=== PATIENT | female | born 1980 | race Caucasian/White ===

== ENCOUNTER 2016-05-14 19:49 | Emergency (ER) | payer BC, OTHER ==
[2016-05-14] MEDS ORDERED: PREDNISONE 20 MG TABLET PO ONE (21:01)
[2016-05-14] MEDS ORDERED: IPRATROPIUM/ALBUTEROL 0.5-2.5 MG/3 ML AMPUL NEB ONE (21:01)
--- NOTE | 2016-05-14 21:02 | ER Document Report ---
ED Medical Screen (RME) - General Stated Complaint: FEVER,CONGESTION Mode of Arrival: Ambulatory Information source: Patient Notes: Patient complains of fever and body aches. She complains of lung pain when taking a deep breath. Patient reports nonproductive cough. Fever has been 102- 103 at home. Patient reports cough symptoms for the past 8 days. Fever just started today. hx: Thyroid cancer I have greeted and performed a rapid initial assessment of this patient. A comprehensive ED assessment and evaluation of the patient, analysis of test results and completion of the medical decision making process will be conducted by additional ED providers. TRAVEL OUTSIDE OF THE [place] IN LAST 30 DAYS: No - Related Data Allergies/Adverse Reactions: erythromycin base [Erythromycin Base] Allergy (Severe, Verified 05/14/16 20:59) Anaphylaxis morphine [Morphine] Allergy (Unknown, Verified 05/14/16 20:59) Silk tape Allergy (Intermediate, Uncoded 01/17/11 12:01) Tears skin, rash Past Medical History - Past Medical History Cardiac Medical History: Reports: Hx Hypercholesterolemia Denies: Hx Coronary Artery Disease, Hx Heart Attack, Hx Hypertension Pulmonary Medical History: Denies: Hx Asthma, Hx Bronchitis, Hx COPD, Hx Pneumonia Neurological Medical History: Reports: Hx Migraine. Denies: Hx Cerebrovascular Accident, Hx Seizures Musculoskeltal Medical History: Denies Hx Arthritis Past Surgical History: Reports: Hx Hysterectomy - Immunizations Hx Diphtheria, Pertussis, Tetanus Vaccination: No Physical Exam - Vital signs Vitals: Temp Pulse BP Pulse Ox 98.2 F 79 120/76 95 05/14/16 20:38 05/14/16 20:38 05/14/16 20:38 05/14/16 20:38 - Respiratory Respiratory status: Depressed respirations Chest status: Pain with cough, Pain with deep breathing Breath sounds: Nonproductive cough, Wheezing Course - Vital Signs Vital signs: Temp Pulse Resp BP Pulse Ox 98.2 F 79 120/76 95 05/14/16 20:38 05/14/16 20:38 05/14/16 20:38 05/14/16 20:38
[2016-05-15] MEDS ORDERED: ALBUTEROL SULFATE HFA (90 MCG/PUFF) 8 GM MDI (1 MDI/ER DISP) IH PRN (01:59)
[2016-05-15] MEDS ORDERED: BENZONATATE 100 MG CAPSULE PO ONE (01:59)
--- NOTE | 2016-05-15 02:02 | ER Document Report ---
ED General - General Chief Complaint: Flu Symptoms Stated Complaint: FEVER,CONGESTION Mode of Arrival: Ambulatory Notes: Patient is a 35-year-old female with past medical history of thyroid cancer in no longer on any active chemotherapy or radiation who presents with 8 days of cough. Patient states that she has also had a fever several times the last 2 days as high as 102F. Symptoms have been unchanged since onset. States she's been trying [id number] medications without any improvement of her symptoms. Nothing worsens her symptoms. States she's had similar symptoms in the past and she's had bronchitis. She does not have a history of asthma and does not use tobacco. She is not seen her primary care physician regarding today's concerns. Denies any associated vomiting, diarrhea, weakness or numbness. No headache or neck pain. Denies any shortness of breath. No history of DVT or pulmonary embolus. She does not use any form of estrogen. TRAVEL OUTSIDE OF THE [place] IN LAST 30 DAYS: No - Related Data Allergies/Adverse Reactions: erythromycin base [Erythromycin Base] Allergy (Severe, Verified 05/14/16 20:59) Anaphylaxis morphine [Morphine] Allergy (Unknown, Verified 05/14/16 20:59) Silk tape Allergy (Intermediate, Uncoded 01/17/11 12:01) Tears skin, rash Past Medical History - General Information source: Patient - Social History Smoking Status: Never Smoker Chew tobacco use (# tins/day): No Frequency of alcohol use: None Drug Abuse: None Lives with: Spouse/Significant other Family History: Reviewed & Not Pertinent - Past Medical History Cardiac Medical History: Reports: Hx Hypercholesterolemia Denies: Hx Coronary Artery Disease, Hx Heart Attack, Hx Hypertension Pulmonary Medical History: Denies: Hx Asthma, Hx Bronchitis, Hx COPD, Hx Pneumonia Neurological Medical History: Reports: Hx Migraine. Denies: Hx Cerebrovascular Accident, Hx Seizures Renal/ Medical History: Denies: Hx Peritoneal Dialysis Musculoskeltal Medical History: Denies Hx Arthritis Past Surgical History: Reports: Hx Hysterectomy - Immunizations Hx Diphtheria, Pertussis, Tetanus Vaccination: No Review of Systems - Review of Systems Notes: Constitutional: Positive for fever. HENT: Negative for sore throat. Eyes: Negative for visual changes. Cardiovascular: Negative for chest pain. Respiratory: Negative for shortness of breath. Positive for cough Gastrointestinal: Negative for abdominal pain, vomiting or diarrhea. Genitourinary: Negative for dysuria. Musculoskeletal: Negative for back pain. Skin: Negative for rash. Neurological: Negative for headaches, weakness or numbness. 10 point ROS negative except as marked above and in HPI. Physical Exam - Vital signs Vitals: Temp Pulse BP Pulse Ox 98.2 F 79 120/76 95 05/14/16 20:38 05/14/16 20:38 05/14/16 20:38 05/14/16 20:38 Interpretation: Normal Notes: PHYSICAL EXAMINATION: GENERAL: Well-appearing, well-nourished and in no acute distress. HEAD: Atraumatic, normocephalic. EYES: Pupils equal round and reactive to light, extraocular movements intact, sclera anicteric, conjunctiva are normal. ENT: nares patent, oropharynx clear without exudates. Moist mucous membranes. NECK: Normal range of motion, supple without lymphadenopathy LUNGS: Breath sounds clear to auscultation bilaterally and equal. No wheezes rales or rhonchi. HEART: Regular rate and rhythm without murmurs ABDOMEN: Soft, nontender, normoactive bowel sounds. No guarding, no rebound. No masses appreciated. EXTREMITIES: Normal range of motion, no pitting or edema. No cyanosis. NEUROLOGICAL: No focal neurological deficits. Moves all extremities spontaneously and on command. PSYCH: Normal mood, normal affect. SKIN: Warm, Dry, normal turgor, no rashes or lesions noted. Course - Re-evaluation Re-evalutation: 05/15/16 01:59 Presentation is most consistent with a viral upper respiratory infection. Patient is overall well appearance, vitals within normal limits, well-hydrated. Patient denies any headache, neck pain, and has no evidence of meningismus on examination. Lungs are clear bilaterally. No evidence of respiratory distress. Based on clinical exam and history, I do not suspect an acute pneumonia, meningitis, strep pharyngitis, or an acute encephalitis. Chest x- ray without evidence of an acute pneumonia. I do not believe laboratories are indicated at this time. At this time will discharge with return precautions and follow-up recommendations. Verbal discharge instructions given a the bedside and opportunity for questions given. Medication warnings reviewed. Patient is in agreement with this plan and has verbalized understanding of return precautions and the need for primary care follow-up in the next 24-72 hours. - Vital Signs Vital signs: Temp Pulse Resp BP Pulse Ox 98 F 74 16 120/82 98 05/15/16 02:15 05/15/16 02:15 05/15/16 02:15 05/15/16 02:15 05/15/16 02:15 - Diagnostic Test Radiology reviewed: Image reviewed, Reports reviewed Radiology results interpreted by me: 05/15/16 02:00 Chest x-ray: No acute infiltrate Discharge - Discharge Clinical Impression: Bronchitis Condition: Good Disposition: HOME, SELF-CARE Additional Instructions: You were seen for symptoms most consistent with bronchitis. This can take up to 12 weeks to fully resolve. This is generally due to a viral infection. Please follow-up with your primary doctor in the next 2-3 days. Return if you develop worsening cough, vomiting, fever >100.4, pass out, begin coughing blood, or have any other symptoms that are concerning to you. Please use the medications prescribed today as directed. Prescriptions: Benzonatate [Tessalon Perle 100 mg Capsule] 100 mg PO Q8HP PRN #40 cap PRN Reason: Forms: Return to Work
[2016-05-15 02:26] VITALS: BP 120/82
== END 2016-05-15 02:26 | disposition home or self-care (01) ==
LOC: ER 19:49
DX: J40 Bronchitis, not specified as acute or chronic (principal); R50.9 Fever, unspecified; R05 Cough; Z85.850 Personal history of malignant neoplasm of thyroid; Z88.1 Allergy status to other antibiotic agents; Z88.5 Allergy status to narcotic agent
CPT/HCPCS: 94640; 99283; 71020; J7512; J3490; J7620

== ENCOUNTER 2018-07-15 07:54 | Day surgery (SDC) | payer BC ==
[~2018-07-15 07:54] MED LIST: PROPOFOL INJ 200 MG/20 ML VIAL IV ONE
[2018-07-15 09:15] VITALS: BP 113/72
--- NOTE | 2018-07-15 13:18 | Operative Report ---
Operative Report DATE OF SURGERY: 07/15/18 Operative Report: The risks, benefits and alternatives of the procedure including the risk of bleeding, perforation requiring surgery have been explained to the patient in detail and informed consent has been obtained. Patient is placed in the left, lateral decubital position. Timeout was called. Propofol medication is administered. Rectal examination is done which did not reveal any masses, tears or fissures. An Olympus videoscope was introduced into the patient's rectum. The scope was then carefully advanced all the way to the cecum. The cecum was identified by the usual anatomical landmarks including the ileocecal valve as well as the appendiceal office. Photodocumentation is obtained. Scope was then sequentially pulled back via the various segments of the colon including the ascending colon, hepatic flexure, transverse colon, splenic flexure, descending colon and finally into the rectosigmoid portions of the colon. Retroflexion maneuver was performed. PREOPERATIVE DIAGNOSIS: Personal history of polyp POSTOPERATIVE DIAGNOSIS: Diverticulosis without any evidence of diverticulitis. Right-sided colon inflammation status post biopsy. Internal hemorrhoids OPERATION: Colonoscopy with biopsy SURGEON: MYRIAM VOGT ANESTHESIA: LMAC TISSUE REMOVED OR ALTERED: As noted above. COMPLICATIONS: None. ESTIMATED BLOOD LOSS: None. INTRAOPERATIVE FINDINGS: As noted above. PROCEDURE: Patient tolerated the procedure well. No immediate postprocedure complications are noted. Patient discharged in good condition. Discharge date 07/15/2018. Discharge diet: Regular. Discharge activity: Regular. 2-3-week follow-up to discuss findings. Patient is instructed to call the office or proceed to the emergency room should there be any further problems or questions. Wait on the pathology. 5-year surveillance colonoscopy.
== END 2018-07-15 09:08 | disposition home or self-care (01) ==
LOC: END 07:54
PROVIDERS: ATTEND Internal Medicine Gastroenterology
PROC: 0DBF8ZX Excision of Right Large Intestine, Via Natural or Artificial Opening Endoscopic, Diagnostic (ICD-10-PCS; principal; 2018-07-15 08:30)
DX: Z12.11 Encounter for screening for malignant neoplasm of colon (principal); K57.32 Diverticulitis of large intestine without perforation or abscess without bleeding; K57.90 Diverticulosis of intestine, part unspecified, without perforation or abscess without bleeding; K64.8 Other hemorrhoids; Z86.010 Personal history of colon polyps; Z85.850 Personal history of malignant neoplasm of thyroid; Z90.710 Acquired absence of both cervix and uterus; Z79.899 Other long term (current) drug therapy; Z88.1 Allergy status to other antibiotic agents; Z88.8 Allergy status to other drugs, medicaments and biological substances
CPT/HCPCS: 45380; 811; 88305; J2704

== ENCOUNTER 2018-08-10 22:55 | Emergency (ER) | payer BC ==
--- NOTE | 2018-08-11 01:04 | ER Document Report ---
ED General - General TRAVEL OUTSIDE OF THE [place] IN LAST 30 DAYS: No - General Chief Complaint: Leg Pain Stated Complaint: LEG SWELLING Time Seen by Provider: 08/11/18 00:47 Notes: Patient is a 37-year-old female presents with complaint of left leg pain. She has pain into her left thigh. She says she has any varicose veins pop up on lateral aspect of thigh and she felt a little not painful area there. She also has been having a dull pain over the posterior aspect of her left thigh. She travels for work and is constantly on the plane and traveling long distances. No history of DVT. No edema. No fevers. No chest pain or shortness of breath. No other complaints at this time. (CALI PÉREZ) - Related Data Allergies/Adverse Reactions: erythromycin base [Erythromycin Base] Allergy (Severe, Verified 07/15/18 07:48) Anaphylaxis morphine [Morphine] Allergy (Severe, Verified 07/15/18 07:48) PONV Silk tape Allergy (Intermediate, Uncoded 07/15/18 07:48) Tears skin, rash Past Medical History - Social History Smoking Status: Never Smoker Frequency of alcohol use: None Drug Abuse: None Family History: Reviewed & Not Pertinent - Past Medical History Cardiac Medical History: Reports: Hx Hypercholesterolemia Denies: Hx Coronary Artery Disease, Hx Heart Attack, Hx Hypertension Pulmonary Medical History: Denies: Hx Asthma, Hx Bronchitis, Hx COPD, Hx Pneumonia Neurological Medical History: Reports: Hx Migraine. Denies: Hx Cerebrovascular Accident, Hx Seizures Renal/ Medical History: Denies: Hx Peritoneal Dialysis Musculoskeletal Medical History: Denies Hx Arthritis Past Surgical History: Reports: Hx Hysterectomy - Immunizations Hx Diphtheria, Pertussis, Tetanus Vaccination: No Review of Systems - Review of Systems Notes: My Normal Review Basic REVIEW OF SYSTEMS: CONSTITUTIONAL : Denies fever, chills, or sweats. Denies recent illness. CARDIOVASCULAR: Denies chest pain. RESPIRATORY: Denies cough, cold, or chest congestion. Denies shortness of breath, difficulty breathing, or wheezing. MUSCULOSKELETAL: Denies neck or back pain or joint pain or swelling. SKIN: Denies rash or skin lesions. HEMATOLOGIC : Denies easy bruising or bleeding. NEUROLOGICAL: Denies sensory or motor loss. ALL OTHER SYSTEMS REVIEWED AND NEGATIVE. (CALI PÉREZ) Physical Exam - Vital signs Vitals: Temp Pulse Resp BP Pulse Ox 98.4 F 84 15 134/86 H 97 08/10/18 23:15 08/10/18 23:15 08/10/18 23:15 08/10/18 23:15 08/10/18 23:15 - Notes Notes: General Appearance: Well nourished, alert, cooperative, no acute distress, no obvious discomfort. Vitals: reviewed, See vital signs table. Eyes: PERRL, EOMI, Conjuctiva clear Extremities: Patient does have multiple small superficial varicose veins. I do not feel any abnormal form of not. Patient does have a dull pain over the posterior aspect of her thigh to palpation. Distal pulses intact. No redness or abnormal swelling to the leg. Skin: warm, dry, appropriate color, no rash Neuro: speech clear, oriented x 3, normal affect, responds appropriately to questions. (CALI PÉREZ) Course - Re-evaluation Re-evalutation: 08/11/18 02:53 Patient will be awaiting ultrasound in the morning to rule out DVT. If DVT ultrasound is negative patient will be discharged home encouraged to return to ER if she has swelling, redness or abnormal warmth to the leg, or any signs of infection. Currently patient has no signs of infection or cellulitis. I suspect that she may have a strain in her hamstring due to the dull pain over the back of the leg. Ultrasound results will be reviewed by morning ED physician and patient will be just about based off of the results. 08/11/18 02:54 (CALI PÉREZ) - Vital Signs Vital signs: Temp Pulse Resp BP Pulse Ox 98.0 F 72 16 126/81 H 99 08/11/18 10:11 08/11/18 10:11 08/11/18 10:11 08/11/18 10:11 08/11/18 10:11 Discharge - Discharge Clinical Impression: Leg pain Qualifiers: Laterality: left Qualified Code(s): M79.605 - Pain in left leg Condition: Good Disposition: HOME, SELF-CARE Additional Instructions: Please do not do anything exertional for one week. Please do stretches that gradually stretch your hamstring. Please return to the ER if you have redness, abnormal warmth to the leg, increasing swelling, chest pain, shortness of breath, fevers, or if you feel like your symptoms are worsening in any way.
[2018-08-11 10:18] VITALS: BP 126/81
--- NOTE | 2018-08-11 10:20 | RADIOLOGY REPORT (SQ) ---
EXAM DESCRIPTION: VENOUS UNILATERAL LOWER COMPLETED DATE/TIME: 08/11/2018 10:11 am REASON FOR STUDY: left leg COMPARISON: None. TECHNIQUE: Dynamic and static harrington scale and color images acquired of the left leg venous system. Se lected spectral images acquired with additional compression and augmentation maneuvers. The contralat eral common femoral vein and saphenofemoral junction were also imaged. Images stored on PACS. LIMITATIONS: None. FINDINGS: COMMON FEMORAL: Normal phasicity, compression and augmentation. No visualized echogenic ma terial on harrington scale. No defects on color images. FEMORAL: Normal compression and augmentation. No visualized echogenic material on harrington scale. No defe cts on color images. POPLITEAL: Normal compression, augmentation. No visualized echogenic material on harrington scale. No defec ts on color images. CALF VESSELS: Normal compression, augmentation. No visualized echogenic material on harrington scale. No de fects on color images. GSV and SSV: Normal compression, augmentation. No visualized echogenic material on harrington scale. No def ects on color images. ANY DEEP VENOUS INSUFFICIENCY: No. ANY EVIDENCE OF POPLITEAL CYST: No. OTHER: No other significant finding. CONTRALATERAL COMMON FEMORAL VEIN AND SAPHENOFEMORAL JUNCTION: Normal phasicity, compression and augmentation. No visualized echogenic material on harrington scale. No de fects on color images. IMPRESSION: NO EVIDENCE DVT OR SVT IN THE LEFT LEG. TECHNICAL DOCUMENTATION: JOB ID: [id number] [employer]- All Rights Reserved Reading location - IP/workstation name: [email or web address]
== END 2018-08-11 10:11 | disposition home or self-care (01) ==
LOC: ER 22:55
DX: M79.652 Pain in left thigh (principal); I83.90 Asymptomatic varicose veins of unspecified lower extremity; Z87.892 Personal history of anaphylaxis; Z88.1 Allergy status to other antibiotic agents; Z88.5 Allergy status to narcotic agent; Z91.048 Other nonmedicinal substance allergy status
CPT/HCPCS: 93971; 99283

== ENCOUNTER 2018-09-04 21:21 | Emergency (ER) | payer BC ==
--- NOTE | 2018-09-04 22:53 | ER Document Report ---
ED Medical Screen (RME) - General Chief Complaint: Groin Pain Stated Complaint: ABDOMINAL PAIN Time Seen by Provider: 09/04/18 22:43 Notes: Patient is a 37-year-old female who presents to the emergency department with a chief complaint of left lower quadrant abdominal pain. She states that she also has groin pain on the left side. She was diagnosed with shingles on her left flank area a few days ago. She states that her lower abdominal pain started last night. She thought it would go away, but she states that it has not. She also notes that she does have an inflamed lymph node in her left groin. She has a past surgical history of a partial hysterectomy, she still has her ovaries. She also has a past medical history of PCOS. Last problem was this morning and was normal. Exam: Tender left lower abdominal. Enlarged lymph node left groin. I have greeted and performed a rapid initial assessment of this patient. A comprehensive ED assessment and evaluation of the patient, analysis of test results and completion of medical decision making process will be conducted by an additional ED providers. TRAVEL OUTSIDE OF THE [place] IN LAST 30 DAYS: No - Related Data Allergies/Adverse Reactions: erythromycin base [Erythromycin Base] Allergy (Severe, Verified 07/15/18 07:48) Anaphylaxis morphine [Morphine] Allergy (Severe, Verified 07/15/18 07:48) PONV Silk tape Allergy (Intermediate, Uncoded 07/15/18 07:48) Tears skin, rash Past Medical History - Past Medical History Cardiac Medical History: Reports: Hx Hypercholesterolemia Denies: Hx Coronary Artery Disease, Hx Heart Attack, Hx Hypertension Pulmonary Medical History: Denies: Hx Asthma, Hx Bronchitis, Hx COPD, Hx Pneumonia Neurological Medical History: Reports: Hx Migraine. Denies: Hx Cerebrovascular Accident, Hx Seizures Renal/ Medical History: Denies: Hx Peritoneal Dialysis Musculoskeltal Medical History: Denies Hx Arthritis Past Surgical History: Reports: Hx Hysterectomy - Immunizations Hx Diphtheria, Pertussis, Tetanus Vaccination: No Physical Exam - Vital signs Vitals: Temp Pulse Resp BP Pulse Ox 100.0 F 81 16 137/91 H 94 09/04/18 21:33 09/04/18 21:33 09/04/18 21:33 09/04/18 21:33 09/04/18 21:33 Course - Vital Signs Vital signs: Temp Pulse Resp BP Pulse Ox 100.0 F 81 16 137/91 H 94 09/04/18 21:33 09/04/18 21:33 09/04/18 21:33 09/04/18 21:33 09/04/18 21:33
--- NOTE | 2018-09-05 00:18 | RADIOLOGY REPORT (SQ) ---
EXAM DESCRIPTION: US PELVIS TRANSVAGINAL COMPLETED DATE/TME: 09/04/2018 22:48 CLINICAL HISTORY: 37 years, Female, RLQ abd pain; hx of partial hysterectomy COMPARISON: None. TECHNIQUE: Transverse and longitudinal transvaginal sonographic images of the pelvis LIMITATIONS: None. FINDINGS: Status post hysterectomy. The right ovary measures 3.5 x 2.3 x 1.9 cm. Left ovary measures 2.5 x 1.7 x 2.0 cm. Arterial and venous flow to both ovaries. Subcentimeter cystic foci associated with each ovary likely reflect residual/postmenopausal cyst. These have a simple appearance. Recommend follow-up as for below. No solid adnexal mass. No free fluid IMPRESSION: Status post hysterectomy with simple appearing subcentimeter ovarian cysts, likely reflecting residual/postmenopausal cyst. Recommendations for f/u of ovarian anechoic simple cyst, simple cyst with single thin <3 mm septation, or focal calcification in wall of cyst (1): Pre-menopause: <= 5 cm No follow-up imaging recommended >5 cm - <=7 cm US f/u annually >7 cm Consider MR w/IVC or surgical evaluation Post-menopause (>=1 year from last menstrual period): <=3 cm No follow-up imaging recommended >3 cm - <=7 cm US f/u annually >7 cm Consider MR w/IVC or surgical evaluation (1) Recommendations based on 2010 SRU Consensus Conference Statement on the Management of Asymptomatic Ovarian and Other Adnexal Cysts Imaged at US: Radiology. 2009;256(3):899-40 copyright 2010 [employer]- All Rights Reserved
[2018-09-05] MEDS ORDERED: ONDANSETRON HCL INJ/PF 4 MG/2 ML SDV IV ONE (00:57)
[2018-09-05] MEDS ORDERED: KETOROLAC TROMETHAMINE INJ/PF 30 MG/1 ML SDV IV ONE (00:57)
[2018-09-05] MEDS: KETOROLAC TROMETHAMINE INJ/PF 30 MG/1 ML SDV IV ONE ×2 (01:01→01:04)
[2018-09-05] MEDS: ONDANSETRON HCL INJ/PF 4 MG/2 ML SDV IV ONE ×2 (01:02→01:04)
[2018-09-05 01:17] LABS: ABSOLUTE EOSINOPHILS # (AUTO) 0.1 10^3/uL (0.0-0.6); ABSOLUTE LYMPHOCYTES (AUTO) 1.8 10^3/uL (0.5-4.7); ABSOLUTE MONOCYTES (AUTO) 0.8 10^3/uL (0.1-1.4); ABSOLUTE NEUT (AUTO) 4.9 10^3/uL (1.7-8.2); BASOPHILS % (AUTO) 0.4 % (0-2); EOSINOPHILS % (AUTO) 1.9 % (0-6); HEMATOCRIT 43.4 % (36.0-47.0); HEMOGLOBIN 14.6 g/dL (12.0-15.5); LYMPHOCYTES % (AUTO) 23.5 % (13-45); MEAN CORPUSCULAR HEMOGLOBIN 30.3 pg (27.0-33.4); MEAN CORPUSCULAR HGB CONC 33.5 g/dL (32.0-36.0); MEAN CORPUSCULAR VOLUME 90 fl (80-97); MONOCYTES % (AUTO) 10.3 % (3-13); PLATELET COUNT 213 10^3/uL (150-450); RED BLOOD COUNT 4.81 10^6/uL (3.72-5.28); RED CELL DISTRIBUTION WIDTH 13.1 % (11.5-14.0); SEGMENTED NEUTROPHILS % (AUTO) 63.9 % (42-78); TOTAL CELLS COUNTED % (AUTO) 100 %; WHITE BLOOD COUNT 7.6 10^3/uL (4.0-10.5)
[2018-09-05 01:43] LABS: ALANINE AMINOTRANSFERASE 42 U/L (9-52); ALBUMIN 4.3 g/dL (3.5-5.0); ALKALINE PHOSPHATASE 54 U/L (38-126); ANION GAP 7 (5-19); ASPARTATE AMINO TRANSFERASE 31 U/L (14-36); BILIRUBIN,DIRECT 0.2 mg/dL (0.0-0.4); BILIRUBIN,TOTAL 0.3 mg/dL (0.2-1.3); BLOOD UREA NITROGEN 10 mg/dL (7-20); CALCIUM 9.6 mg/dL (8.4-10.2); CARBON DIOXIDE 29 mmol/L (22-30); CHLORIDE 101 mmol/L (98-107); GLUCOSE 116 mg/dL (75-110); POTASSIUM 4.1 mmol/L (3.6-5.0); SODIUM 137.2 mmol/L (137-145); TOTAL PROTEIN 7.7 g/dL (6.3-8.2)
[2018-09-05] MEDS ORDERED: HYDROCODONE/ACETAMINOPHEN 5-325 MG TABLET PO ONE (03:10)
[2018-09-05 03:11] LABS: APPEARANCE,URINE CLEAR; BILIRUBIN,URINE NEGATIVE (NEGATIVE); COLOR,URINE YELLOW; GLUCOSE, URINE NEGATIVE (NEGATIVE); KETONES,URINE NEGATIVE (NEGATIVE); LEUKOCYTE ESTERASE,URINE NEGATIVE (NEGATIVE); NITRITE,URINE NEGATIVE (NEGATIVE); PROTEIN,URINE NEGATIVE (NEGATIVE); URINE SPECIFIC GRAVITY 1.015; UROBILINOGEN,URINE NEGATIVE mg/dL (<2.0)
--- NOTE | 2018-09-05 04:13 | RADIOLOGY REPORT (SQ) ---
EXAM DESCRIPTION: US RETROPERITONEUM COMPLETED DATE/TME: 09/05/2018 03:29 CLINICAL HISTORY:37 years Female, left flank pain Comparison: None Grayscale and Doppler sonogram of the retroperitoneum. FINDINGS: IVC: Normal Aorta: Normal Right kidney: 10.3 cm. No hydronephrosis. No nephrolithiasis. Left kidney: 12.5 cm. No hydronephrosis. No nephrolithiasis. Urinary bladder: Normal. Bilateral ureteral jets visualized. IMPRESSION: No hydronephrosis or nephrolithiasis within either kidney.
[2018-09-05] MEDS ORDERED: PREGABALIN 75 MG CAPSULE PO ONE (04:30)
--- NOTE | 2018-09-05 04:34 | ER Document Report ---
ED General - General Chief Complaint: Groin Pain Stated Complaint: ABDOMINAL PAIN Time Seen by Provider: 09/04/18 22:43 Notes: Patient is a 37-year-old female presents with complaint of pain over the left lower abdomen inguinal area. She was diagnosed with shingles per week ago. She has been on valacyclovir for this. She says that she has some pain from shingles for the last couple days she is developed this new pain which feels different than the pain she was having originally with shingles. Said the pain is sharp stabbing type pain in the left lower quadrant. Intermittent. Notes associated vaginal discharge or bleeding. She had a low-grade temp of 100 degrees even here in triage. No vomiting. No diarrhea. No other complaints at this time. Had previous hysterectomy. TRAVEL OUTSIDE OF THE [place] IN LAST 30 DAYS: No - Related Data Allergies/Adverse Reactions: erythromycin base [Erythromycin Base] Allergy (Severe, Verified 07/15/18 07:48) Anaphylaxis morphine [Morphine] Allergy (Severe, Verified 07/15/18 07:48) PONV Silk tape Allergy (Intermediate, Uncoded 07/15/18 07:48) Tears skin, rash Past Medical History - Social History Smoking Status: Never Smoker Frequency of alcohol use: None Drug Abuse: None Family History: Reviewed & Not Pertinent Patient has suicidal ideation: No Patient has homicidal ideation: No - Past Medical History Cardiac Medical History: Reports: Hx Hypercholesterolemia Denies: Hx Coronary Artery Disease, Hx Heart Attack, Hx Hypertension Pulmonary Medical History: Denies: Hx Asthma, Hx Bronchitis, Hx COPD, Hx Pneumonia Neurological Medical History: Reports: Hx Migraine. Denies: Hx Cerebrovascular Accident, Hx Seizures Renal/ Medical History: Denies: Hx Peritoneal Dialysis Musculoskeletal Medical History: Denies Hx Arthritis Past Surgical History: Reports: Hx Hysterectomy - Immunizations Hx Diphtheria, Pertussis, Tetanus Vaccination: No Review of Systems - Review of Systems Notes: My Normal Review Basic REVIEW OF SYSTEMS: CONSTITUTIONAL : Denies fever, chills, or sweats. Denies recent illness. CARDIOVASCULAR: Denies chest pain. RESPIRATORY: Denies cough, cold, or chest congestion. Denies shortness of breath, difficulty breathing, or wheezing. GASTROINTESTINAL: Lower abdominal pain. Denies nausea, vomiting, or diarrhea. GENITOURINARY: Denies difficulty urinating, painful urination, burning, frequency, or blood in urine. FEMALE GENITOURINARY: Denies vaginal bleeding, abnormal or irregular periods. LMP: Previous hysterectomy MUSCULOSKELETAL: Denies neck or back pain or joint pain or swelling. SKIN: Denies rash or skin lesions. NEUROLOGICAL: Denies altered mental status or loss of consciousness. Denies sensory or motor loss. ALL OTHER SYSTEMS REVIEWED AND NEGATIVE. Physical Exam - Vital signs Vitals: Temp Pulse Resp BP Pulse Ox 100.0 F 81 16 137/91 H 94 09/04/18 21:33 09/04/18 21:33 09/04/18 21:33 09/04/18 21:33 09/04/18 21:33 - Notes Notes: General Appearance: Well nourished, alert, cooperative, no acute distress, no obvious discomfort. Well appearing. Vitals: reviewed, See vital signs table. Head: no swelling or tenderness to the head Eyes: PERRL, EOMI, Conjuctiva clear Mouth: No decreasd moisture Lungs: No wheezing, No rales, No rhonci, No accessory muscle use, good air exchange bilaterally. Heart: Normal rate, Regular rythm, No murmur, no rub Abdomen: Normal BS, soft, No rigidity, left lower quadrant normal tenderness to palpation., No guarding, no rebound, no abdominal masses, no organomegaly Extremities: strength 5/5 in all extremities, good pulses in all extremities, no swelling or tenderness in the extremities, no edema. Skin: Obvious shingles rash that starts in the left lower back and goes around the left flank and into the left inguinal area and left lower abdomen. Neuro: speech clear, oriented x 3, normal affect, responds appropriately to questions. Course - Re-evaluation Re-evalutation: 09/05/18 04:35 Exact cause of the patient's pain is not 100% clear. It is over the left lower quadrant of the abdomen and almost into the inguinal region. Her shingles does go across this area where her pain is. I informed the patient I am not 100% convinced that is related to shingles only because she feels as if the pain is deeper than the skin itself; however, it still could be like related to the shingles and therefore we will start her on Lyrica to see if this helps. She did have a low-grade temp of 100 degrees upfront. She does not have a significant leukocytosis. Her labs are non-concerning. Urinalysis does not show any evidence of infection. She has had no vaginal discharge and is sexually monogamous and is not concerned for sexually transmitted diseases. Ultrasound did not show any concerning findings. Clinically she looks well her vital signs are stable and therefore feel she safe to be discharged home. I informed her to follow-up closely with her primary care doctor for reevaluation. She is to return to ER if she is worsening pain, recurrent fevers, vomiting, or if she feels unwell. Patient agree with plan and she will be discharged home. Dictation of this chart was performed using voice recognition software; therefore, there may be some unintended grammatical errors. 09/05/18 04:37 - Vital Signs Vital signs: Temp Pulse Resp BP Pulse Ox 97.4 F 77 20 122/68 93 09/05/18 04:59 09/05/18 04:59 09/05/18 04:59 09/05/18 04:59 09/05/18 04:59 - Laboratory Result Diagrams: 09/05/18 00:55 09/05/18 00:55 Laboratory results interpreted by me: 09/05/18 09/05/18 00:55 00:55 Glucose 116 H Urine Blood MODERATE H Discharge - Discharge Clinical Impression: Abdominal pain Qualifiers: Abdominal location: left lower quadrant Qualified Code(s): R10.32 - Left lower quadrant pain Condition: Good Disposition: HOME, SELF-CARE Additional Instructions: The exact cause of your abdominal pain is not 100% clear. Ultrasound looking at the pelvic region did not show any concerning findings. Your urine did not show any concerning findings. Your blood work was normal. Ultrasound looking for evidence of a kidney stone was normal. You do have pain over the area where your shingles is. This could represent that your pain is postherpetic neuralgia. Again the character of your pain does not 100% fit this however the location would. We will start you on Lyrica. Lyrica usually takes a few days before it starts to help the pain. There May make you little bit sleepy so please do not drive after the first time to take it to see whether or not it should drowsy or adversely affects you. Please follow-up with your doctor before stopping this medicine as she may need to be weaned off of it. Please follow-up with your doctor on Sunday for reevaluation. Should return to the ER for reevaluation if you are still having pain by tomorrow night. Please return to the ER immediately if you have worsening pain, fevers, vomiting, diarrhea, or if you feel like you are worsening in any way. Prescriptions: Pregabalin [Lyrica 75 mg Capsule] 75 mg PO Q12 #20 capsule Forms: Special Work Note, Return to Work
[2018-09-05 05:00] VITALS: BP 122/68
== END 2018-09-05 05:02 | disposition home or self-care (01) ==
LOC: ER 21:21
DX: R10.32 Left lower quadrant pain (principal); B02.9 Zoster without complications; Z90.710 Acquired absence of both cervix and uterus; Z87.892 Personal history of anaphylaxis; Z88.1 Allergy status to other antibiotic agents; Z88.6 Allergy status to analgesic agent; Z91.048 Other nonmedicinal substance allergy status
CPT/HCPCS: 99284; 96374; 96375; 36415; 85025; 80053; 81001; 76770; 76830; 93976; J1885; J2405

== ENCOUNTER 2018-09-10 20:26 | Inpatient (IN) | payer BC ==
[2018-09-10 21:13] LABS: APPEARANCE,URINE CLEAR; BILIRUBIN,URINE NEGATIVE (NEGATIVE); COLOR,URINE YELLOW; GLUCOSE, URINE NEGATIVE (NEGATIVE); KETONES,URINE TRACE mg/dL (NEGATIVE); LEUKOCYTE ESTERASE,URINE TRACE (NEGATIVE); NITRITE,URINE NEGATIVE (NEGATIVE); PROTEIN,URINE NEGATIVE (NEGATIVE); UROBILINOGEN,URINE NEGATIVE mg/dL (<2.0)
[2018-09-10 21:14] LABS: URINE SPECIFIC GRAVITY > 1.060
[2018-09-10 21:27] LABS: ABSOLUTE BASOPHILS # (AUTO) 0.1 10^3/uL (0.0-0.2); ABSOLUTE EOSINOPHILS # (AUTO) 0.1 10^3/uL (0.0-0.6); ABSOLUTE LYMPHOCYTES (AUTO) 2.9 10^3/uL (0.5-4.7); ABSOLUTE MONOCYTES (AUTO) 0.7 10^3/uL (0.1-1.4); ABSOLUTE NEUT (AUTO) 7.1 10^3/uL (1.7-8.2); BASOPHILS % (AUTO) 0.8 % (0-2); EOSINOPHILS % (AUTO) 0.6 % (0-6); HEMATOCRIT 42.4 % (36.0-47.0); HEMOGLOBIN 14.3 g/dL (12.0-15.5); LYMPHOCYTES % (AUTO) 26.8 % (13-45); MEAN CORPUSCULAR HEMOGLOBIN 30.1 pg (27.0-33.4); MEAN CORPUSCULAR HGB CONC 33.8 g/dL (32.0-36.0); MEAN CORPUSCULAR VOLUME 89 fl (80-97); MONOCYTES % (AUTO) 6.7 % (3-13); PLATELET COUNT 267 10^3/uL (150-450); RED BLOOD COUNT 4.77 10^6/uL (3.72-5.28); RED CELL DISTRIBUTION WIDTH 13.8 % (11.5-14.0); SEGMENTED NEUTROPHILS % (AUTO) 65.1 % (42-78); TOTAL CELLS COUNTED % (AUTO) 100 %
--- NOTE | 2018-09-10 21:28 | ER Document Report ---
ED General - General Chief Complaint: Abnormal Lab Results Stated Complaint: ABNORMAL LABS Time Seen by Provider: 09/10/18 21:08 Primary Care Provider: MYRIAM VOGT MD [ACTIVE STAFF] - Follow up as needed Notes: 37-year-old female patient. No significant comorbidities has been treated on his an outpatient for 5 days for diverticulitis but getting worse. Pain is getting worse. Fevers at home. Sent for admission to the hospital. Dr. Vogt with GI has been following. Currently on Cipro and Flagyl. TRAVEL OUTSIDE OF THE [place] IN LAST 30 DAYS: No - HPI Onset: Last week Onset/Duration: Gradual, Worse Quality of pain: Achy, Throbbing Severity: Moderate Associated symptoms: Fever Exacerbated by: Movement, Walking - Related Data Allergies/Adverse Reactions: erythromycin base [Erythromycin Base] Allergy (Severe, Verified 07/15/18 07:48) Anaphylaxis morphine [Morphine] Allergy (Severe, Verified 07/15/18 07:48) PONV Silk tape Allergy (Intermediate, Uncoded 07/15/18 07:48) Tears skin, rash Past Medical History - General Information source: Patient - Social History Smoking Status: Smoker,Current Status Unk Frequency of alcohol use: None Drug Abuse: None Lives with: Spouse/Significant other Family History: Reviewed & Not Pertinent - Past Medical History Cardiac Medical History: Reports: Hx Hypercholesterolemia Denies: Hx Coronary Artery Disease, Hx Heart Attack, Hx Hypertension Pulmonary Medical History: Denies: Hx Asthma, Hx Bronchitis, Hx COPD, Hx Pneumonia Neurological Medical History: Reports: Hx Migraine. Denies: Hx Cerebrovascular Accident, Hx Seizures Renal/ Medical History: Denies: Hx Peritoneal Dialysis Musculoskeletal Medical History: Denies Hx Arthritis Past Surgical History: Reports: Hx Hysterectomy - Immunizations Hx Diphtheria, Pertussis, Tetanus Vaccination: No Review of Systems - Review of Systems Notes: Constitutional: denies: Chills, Diaphoresis, +Fever, -Malaise, -Weakness EENT: denies: Eye discharge, Blurred vision, Tearing, Double vision, Nose congestion, Nose discharge, Throat swelling, Mouth pain Cardiovascular: denies: Palpitations, Heart racing, Orthopnea, Dyspnea, Chest pain Respiratory: denies: Cough, Hurts to breathe, Wheezing, Shortness of breath Gastrointestinal: Left lower quadrant abdominal pain, diarrhea after drinking oral contrast, mild nausea. No blood in the stool. Genitourinary: denies: Burning, Dysuria, Discharge, Frequency, Flank pain, Hematuria Musculoskeletal: denies: Joint pain, Joint swelling, Muscle pain, Muscle stiffness, back pain Hematologic/Lymphatic: denies: Anemia, Easy bleeding, Easy bruising, Blood c lots Neurological/Psychological: denies: Confusion, Dementia, Depression, Loss of consciousness Skin: No lesions, no masses, no skin breakdown, no abscesses Physical Exam - Vital signs Vitals: Temp Pulse Resp BP Pulse Ox 98.8 F 92 16 134/100 H 97 09/10/18 20:41 09/10/18 20:41 09/10/18 20:41 09/10/18 20:41 09/10/18 20:41 Interpretation: Normal - General General appearance: Appears well, Alert - HEENT Head: Normocephalic, Atraumatic Eyes: Normal Pupils: PERRL - Respiratory Respiratory status: No respiratory distress Chest status: Nontender Breath sounds: Normal Chest palpation: Normal - Cardiovascular Rhythm: Regular Heart sounds: Normal auscultation Murmur: No - Abdominal Inspection: Normal Distension: No distension Bowel sounds: Normal Tenderness: Tender. No: Guarding, Rebound - Tenderness to palpation in the left lower quadrant with no guarding or rebound. Organomegaly: No organomegaly - Back Back: Normal, Nontender - Extremities General upper extremity: Normal inspection, Nontender, Normal color, Normal ROM, Normal temperature General lower extremity: Normal inspection, Nontender, Normal color, Normal ROM, Normal temperature, Normal weight bearing. No: Aldair's sign - Neurological Neuro grossly intact: Yes Cognition: Normal Orientation: AAOx4 Edison Coma Scale Eye Opening: Spontaneous Herlinda Coma Scale Verbal: Oriented Herlinda Coma Scale Motor: Obeys Commands Edison Coma Scale Total: 15 Speech: Normal Motor strength normal: LUE, RUE, LLE, RLE Sensory: Normal - Psychological Associated symptoms: Normal affect, Normal mood - Skin Skin Temperature: Warm Skin Moisture: Dry Skin Color: Normal Course - Re-evaluation Re-evalutation: 09/10/18 22:18 Laboratory 09/10/18 09/10/18 09/10/18 20:36 21:14 21:14 WBC 11.0 H RBC 4.77 Hgb 14.3 Hct 42.4 MCV 89 MCH 30.1 MCHC 33.8 RDW 13.8 Plt Count 267 Seg Neutrophils % 65.1 Lymphocytes % 26.8 Monocytes % 6.7 Eosinophils % 0.6 Basophils % 0.8 Absolute Neutrophils 7.1 Absolute Lymphocytes 2.9 Absolute Monocytes 0.7 Absolute Eosinophils 0.1 Absolute Basophils 0.1 Sodium 136.3 L Potassium 3.8 Chloride 102 Carbon Dioxide 23 Anion Gap 11 BUN 11 Creatinine 0.86 Est GFR ( Amer) > 60 Est GFR (Non-Af Amer) > 60 Glucose 97 Calcium 9.2 Total Bilirubin 0.5 Direct Bilirubin 0.2 Neonat Total Bilirubin Not Reportable Neonat Direct Bilirubin Not Reportable Neonat Indirect Bili Not Reportable AST 38 H ALT 48 Alkaline Phosphatase 56 Total Protein 7.6 Albumin 4.3 Lipase 53.1 Serum HCG, Qual Urine Color YELLOW Urine Appearance CLEAR Urine pH 6.0 Ur Specific [place] > 1.060 Urine Protein NEGATIVE Urine Glucose (UA) NEGATIVE Urine Ketones TRACE H Urine Blood NEGATIVE Urine Nitrite NEGATIVE Urine Bilirubin NEGATIVE Urine Urobilinogen NEGATIVE Ur Leukocyte Esterase TRACE H Urine WBC (Auto) 1 Urine RBC (Auto) 1 Squamous Epi Cells Auto <1 Urine Mucus (Auto) RARE Urine Ascorbic Acid NEGATIVE 09/10/18 21:14 WBC RBC Hgb Hct MCV MCH MCHC RDW Plt Count Seg Neutrophils % Lymphocytes % Monocytes % Eosinophils % Basophils % Absolute Neutrophils Absolute Lymphocytes Absolute Monocytes Absolute Eosinophils Absolute Basophils Sodium Potassium Chloride Carbon Dioxide Anion Gap BUN Creatinine Est GFR ( Amer) Est GFR (Non-Af Amer) Glucose Calcium Total Bilirubin Direct Bilirubin Neonat Total Bilirubin Neonat Direct Bilirubin Neonat Indirect Bili AST ALT Alkaline Phosphatase Total Protein Albumin Lipase Serum HCG, Qual NEGATIVE Urine Color Urine Appearance Urine pH Ur Specific [place] Urine Protein Urine Glucose (UA) Urine Ketones Urine Blood Urine Nitrite Urine Bilirubin Urine Urobilinogen Ur Leukocyte Esterase Urine WBC (Auto) Urine RBC (Auto) Squamous Epi Cells Auto Urine Mucus (Auto) Urine Ascorbic Acid 09/10/18 22:28 This is a 37-year-old female patient with worsening diverticulitis with right lower quadrant pain. Has an elevated to BC count at this time failing outpatient treatment. Will start on antibiotics. Consulted hospitalist. Will admit at this time. - Vital Signs Vital signs: Temp Pulse Resp BP Pulse Ox 98.8 F 92 19 140/89 H 97 09/10/18 20:41 09/10/18 20:41 09/10/18 21:01 09/10/18 21:01 09/10/18 21:01 - Laboratory Result Diagrams: 09/10/18 21:14 09/10/18 21:14 Laboratory results interpreted by me: 09/10/18 09/10/18 09/10/18 20:36 21:14 21:14 WBC 11.0 H Sodium 136.3 L AST 38 H Urine Ketones TRACE H Ur Leukocyte Esterase TRACE H Discharge - Discharge Clinical Impression: Acute diverticulitis, Dehydration Condition: Good Disposition: ADMITTED INPATIENT Admitting Provider: Rufus (Hospitalist) Unit Admitted: Medical Floor Referrals: MYRIAM VOGT MD [ACTIVE STAFF] - Follow up as needed
[2018-09-10 21:47] LABS: ALANINE AMINOTRANSFERASE 48 U/L (9-52); ALBUMIN 4.3 g/dL (3.5-5.0); ALKALINE PHOSPHATASE 56 U/L (38-126); ANION GAP 11 (5-19); ASPARTATE AMINO TRANSFERASE 38 U/L (14-36); BILIRUBIN,DIRECT 0.2 mg/dL (0.0-0.4); BILIRUBIN,TOTAL 0.5 mg/dL (0.2-1.3); BLOOD UREA NITROGEN 11 mg/dL (7-20); CALCIUM 9.2 mg/dL (8.4-10.2); CARBON DIOXIDE 23 mmol/L (22-30); CHLORIDE 102 mmol/L (98-107); GLUCOSE 97 mg/dL (75-110); LIPASE 53.1 U/L (23-300); POTASSIUM 3.8 mmol/L (3.6-5.0); SODIUM 136.3 mmol/L (137-145); TOTAL PROTEIN 7.6 g/dL (6.3-8.2)
[2018-09-10] MEDS ORDERED: NORMAL SALINE 1000 ML 1,000 ML IV ONE (22:16)
[2018-09-10] MEDS ORDERED: HYDROMORPHONE HCL INJ/PF 2 MG/ML AMPULE IV ONE (22:16)
[2018-09-10] MEDS ORDERED: ONDANSETRON HCL INJ/PF 4 MG/2 ML SDV IV ONE (22:16)
[2018-09-10] MEDS ORDERED: KETOROLAC TROMETHAMINE INJ/PF 30 MG/1 ML SDV IV ONE (22:16)
[2018-09-10] MEDS ORDERED: PIPERACILLIN/TAZOBACTAM 3.375 GM VIAL IV ONE (22:18)
[2018-09-10] MEDS ORDERED: ACETAMINOPHEN 325 MG TABLET PO PRN (22:28)
[2018-09-10] MEDS ORDERED: MAG HYDROX/AL HYDROX/SIMETH SUSP 30 ML UDCUP PO PRN (22:28)
[2018-09-10] MEDS ORDERED: KETOROLAC TROMETHAMINE INJ/PF 30 MG/1 ML SDV IV PRN (22:31)
[2018-09-10] MEDS ORDERED: PIPERACILLIN/TAZOBACTAM 4.5 GM VIAL IV PRN (22:38)
[2018-09-11] MEDS: NORMAL SALINE 1000 ML 1,000 ML IV PRN ×2 (01:25→05:34)
[2018-09-11] MEDS ORDERED: PIPERACILLIN/TAZOBACTAM 4.5 GM VIAL IV ONE (03:20)
[2018-09-11] MEDS: PIPERACILLIN SODIUM/TAZOBACTAM 4.5 GM in NORMAL SALINE 100 ML IV SCH ×4 (04:43→21:43)
--- NOTE | 2018-09-11 04:52 | PDOC H&P ---
History of Present Illness Admission Date/PCP: 09/10/18 22:35 Patient complains of: Abdominal pain History of Present Illness: ANDREY BERGMAN is a 37 year old female with a past medical history of shingles and diverticulitis who presents with 5 days of abdominal pain. She has seen primary care and prescribed ciprofloxacin and Flagyl twice daily without signifi cant improvement prompting her to seek evaluation by GI subspecialty who ordered abdominal CT revealing acute colonic diverticulitis. She is referred to the emergency room for outpatient failure. In the emergency room she started on symptomatic management, Zosyn and referred to the hospitalist for admission. Past Medical History Cardiac Medical History: Reports: Hyperlipidema Denies: Coronary Artery Disease, Myocardial Infarction, Hypertension Pulmonary Medical History: Denies: Asthma, Bronchitis, Chronic Obstructive Pulmonary Disease (COPD), Pneumonia Neurological Medical History: Reports: Migraine Denies: Seizures Musculoskeltal Medical History: Denies: Arthritis Psychiatric Medical History: Denies: Depression Hematology: Denies: Anemia Past Surgical History Past Surgical History: Reports: Hysterectomy Social History Information Source: Patient Lives with: Spouse/Significant other Smoking Status: Former Smoker Number of Years Smokin Frequency of Alcohol Use: Occasional Hx Recreational Drug Use: No Drugs: None Hx Prescription Drug Abuse: No - Advance Directive Resuscitation Status: Full Code Family History Family History: Hypertension Parental Family History Reviewed: Yes Children Family History Reviewed: Yes Sibling(s) Family History Reviewed.: Yes Medication/Allergy Home Medications: Levothyroxine Sodium [Synthroid] 200 mcg PO DAILY 07/09/18 Thyroid,Pork [Porter Thyroid] 30 mg PO Q8A 07/15/18 Allergies/Adverse Reactions: erythromycin base [Erythromycin Base] Allergy (Severe, Verified 07/15/18 07:48) Anaphylaxis morphine [Morphine] Allergy (Severe, Verified 07/15/18 07:48) PONV Silk tape Allergy (Intermediate, Uncoded 07/15/18 07:48) Tears skin, rash Review of Systems Constitutional: PRESENT: as per HPI, anorexia, chills. ABSENT: fever(s), headache(s), weight gain, weight loss Eyes: ABSENT: visual disturbances Ears: ABSENT: hearing changes Cardiovascular: ABSENT: chest pain, dyspnea on exertion, edema, orthropnea, palpitations Respiratory: ABSENT: cough, hemoptysis Gastrointestinal: PRESENT: as per HPI, abdominal pain, bloating, nausea. ABSENT: constipation, diarrhea, hematemesis, hematochezia, vomiting Genitourinary: ABSENT: dysuria, hematuria Musculoskeletal: ABSENT: joint swelling Integumentary: ABSENT: rash, wounds Neurological: ABSENT: abnormal gait, abnormal speech, confusion, dizziness, focal weakness, syncope Psychiatric: ABSENT: anxiety, depression, homidical ideation, suicidal ideation Endocrine: ABSENT: cold intolerance, heat intolerance, polydipsia, polyuria Hematologic/Lymphatic: ABSENT: easy bleeding, easy bruising Physical Exam Vital Signs: Temp Pulse Resp BP Pulse Ox 98.5 F 70 16 103/51 L 98 09/11/18 04:13 09/11/18 04:13 09/11/18 04:13 09/11/18 04:13 09/11/18 04:13 Intake & Output 09/09/18 09/10/18 09/11/18 11:59 11:59 11:59 Intake Total 1000 Output Total 150 Balance 850 Weight 83.461 kg General appearance: PRESENT: cooperative, mild distress, well-developed, well-nourished Head exam: PRESENT: atraumatic, normocephalic Eye exam: PRESENT: conjunctiva pink, EOMI, PERRLA. ABSENT: scleral icterus Ear exam: PRESENT: normal external ear exam Mouth exam: PRESENT: moist, tongue midline Neck exam: ABSENT: carotid bruit, JVD, lymphadenopathy, thyromegaly Respiratory exam: PRESENT: clear to auscultation jairo. ABSENT: rales, rhonchi, wheezes Cardiovascular exam: PRESENT: RRR. ABSENT: diastolic murmur, rubs, systolic murmur Pulses: PRESENT: normal dorsalis pedis pul Vascular exam: PRESENT: normal capillary refill GI/Abdominal exam: PRESENT: hypoactive bowel sounds, normal bowel sounds, soft, tenderness. ABSENT: distended, guarding, mass, organolmegaly, rebound Rectal exam: PRESENT: deferred Extremities exam: PRESENT: full ROM. ABSENT: calf tenderness, clubbing, pedal edema Neurological exam: PRESENT: alert, awake, oriented to person, oriented to place, oriented to time, oriented to situation, CN II-XII grossly intact. ABSENT: motor sensory deficit Psychiatric exam: PRESENT: appropriate affect, normal mood. ABSENT: homicidal ideation, suicidal ideation Skin exam: PRESENT: dry, intact, warm. ABSENT: cyanosis, rash Results Laboratory Results: 09/10/18 21:14 09/10/18 21:14 09/10/18 09/10/18 09/10/18 20:36 21:14 21:14 WBC 11.0 H RBC 4.77 Hgb 14.3 Hct 42.4 MCV 89 MCH 30.1 MCHC 33.8 RDW 13.8 Plt Count 267 Seg Neutrophils % 65.1 Lymphocytes % 26.8 Monocytes % 6.7 Eosinophils % 0.6 Basophils % 0.8 Absolute Neutrophils 7.1 Absolute Lymphocytes 2.9 Absolute Monocytes 0.7 Absolute Eosinophils 0.1 Absolute Basophils 0.1 Sodium 136.3 L Potassium 3.8 Chloride 102 Carbon Dioxide 23 Anion Gap 11 BUN 11 Creatinine 0.86 Est GFR ( Amer) > 60 Est GFR (Non-Af Amer) > 60 Glucose 97 Calcium 9.2 Total Bilirubin 0.5 AST 38 H ALT 48 Alkaline Phosphatase 56 Total Protein 7.6 Albumin 4.3 Lipase 53.1 Serum HCG, Qual Urine Color YELLOW Urine Appearance CLEAR Urine pH 6.0 Ur Specific [place] > 1.060 Urine Protein NEGATIVE Urine Glucose (UA) NEGATIVE Urine Ketones TRACE H Urine Blood NEGATIVE Urine Nitrite NEGATIVE Ur Leukocyte Esterase TRACE H Urine WBC (Auto) 1 Urine RBC (Auto) 1 09/10/18 21:14 WBC RBC Hgb Hct MCV MCH MCHC RDW Plt Count Seg Neutrophils % Lymphocytes % Monocytes % Eosinophils % Basophils % Absolute Neutrophils Absolute Lymphocytes Absolute Monocytes Absolute Eosinophils Absolute Basophils Sodium Potassium Chloride Carbon Dioxide Anion Gap BUN Creatinine Est GFR ( Amer) Est GFR (Non-Af Amer) Glucose Calcium Total Bilirubin AST ALT Alkaline Phosphatase Total Protein Albumin Lipase Serum HCG, Qual NEGATIVE Urine Color Urine Appearance Urine pH Ur Specific [place] Urine Protein Urine Glucose (UA) Urine Ketones Urine Blood Urine Nitrite Ur Leukocyte Esterase Urine WBC (Auto) Urine RBC (Auto) Assessment and Plan - Diagnosis (1) Acute diverticulitis Is this a current diagnosis for this admission?: Yes Plan: Failing suboptimal p.o. regiment outpatient, continue IV Zosyn, bowel rest, symptomatic management follow-up CBC, consider outpatient surgical consult (2) Abdominal pain Is this a current diagnosis for this admission?: Yes Plan: Secondary to #1, NSAIDs - Time Time Spent with patient: 25-34 minutes - Inpatient Certification Medical Necessity: Need Close Monitoring Due to Risk of Patient Decompensation
[2018-09-11] MEDS: HEPARIN SOD (PORCINE) 5,000 UNIT/ML 1 ML SYRINGE SUBCUT SCH ×2 (05:34→15:46)
[2018-09-11 06:23] LABS: ABSOLUTE BASOPHILS # (AUTO) 0.1 10^3/uL (0.0-0.2); ABSOLUTE EOSINOPHILS # (AUTO) 0.1 10^3/uL (0.0-0.6); ABSOLUTE LYMPHOCYTES (AUTO) 3.3 10^3/uL (0.5-4.7); ABSOLUTE MONOCYTES (AUTO) 0.7 10^3/uL (0.1-1.4); ABSOLUTE NEUT (AUTO) 4.5 10^3/uL (1.7-8.2); BASOPHILS % (AUTO) 0.6 % (0-2); EOSINOPHILS % (AUTO) 1.3 % (0-6); HEMATOCRIT 38.5 % (36.0-47.0); HEMOGLOBIN 12.9 g/dL (12.0-15.5); LYMPHOCYTES % (AUTO) 38.4 % (13-45); MEAN CORPUSCULAR HEMOGLOBIN 30.2 pg (27.0-33.4); MEAN CORPUSCULAR HGB CONC 33.6 g/dL (32.0-36.0); MEAN CORPUSCULAR VOLUME 90 fl (80-97); MONOCYTES % (AUTO) 7.8 % (3-13); PLATELET COUNT 221 10^3/uL (150-450); RED BLOOD COUNT 4.29 10^6/uL (3.72-5.28); RED CELL DISTRIBUTION WIDTH 13.3 % (11.5-14.0); SEGMENTED NEUTROPHILS % (AUTO) 51.9 % (42-78); TOTAL CELLS COUNTED % (AUTO) 100 %; WHITE BLOOD COUNT 8.7 10^3/uL (4.0-10.5)
[2018-09-11 06:40] LABS: ANION GAP 8 (5-19); BLOOD UREA NITROGEN 10 mg/dL (7-20); CALCIUM 7.9 mg/dL (8.4-10.2); CARBON DIOXIDE 21 mmol/L (22-30); CHLORIDE 109 mmol/L (98-107); GLUCOSE 94 mg/dL (75-110); POTASSIUM 3.7 mmol/L (3.6-5.0); SODIUM 137.5 mmol/L (137-145)
--- NOTE | 2018-09-11 06:49 | PDOC CONSULTATION ---
Consultation Consult Date: 09/11/18 Provider Consulted: MYRIAM VOGT Consult reason:: Diverticulitis History of Present Illness Admission Date/PCP: 09/10/18 22:35 History of Present Illness: ANDREY BERGMAN is a 37 year old female Patient was seen at the office yesterday 1 week prior to this admission, patient was seen in the ED for LLQ pain she has a known of diverticulosis and presented with fever and chills as well she was discharged after a negative ultrasound No CT was done she was discharged on Lyrica she was felt to have shingles patient then went to see her PCP for follow up she was then prescribed oral Cipro and Flagyl it had been 5 days since then and she came to my office complaining of continued LLQ pain with fever and chills she has not been able to tolerate any oral intake she was sent for a CT, , noted and confirmed to have diverticulitis without abscess or perforation she was referred for admission and IV antibiotics she did have a slight increase WBC on admission Past Medical History Cardiac Medical History: Reports: Hyperlipidema Denies: Coronary Artery Disease, Myocardial Infarction, Hypertension Pulmonary Medical History: Denies: Asthma, Bronchitis, Chronic Obstructive Pulmonary Disease (COPD), Pneumonia Neurological Medical History: Reports: Migraine Denies: Seizures Musculoskeltal Medical History: Denies: Arthritis Psychiatric Medical History: Denies: Depression Hematology: Denies: Anemia Past Surgical History Past Surgical History: Reports: Hysterectomy Social History Lives with: Spouse/Significant other Smoking Status: Former Smoker Number of Years Smokin Frequency of Alcohol Use: Occasional Hx Recreational Drug Use: No Drugs: None Hx Prescription Drug Abuse: No - Advance Directive Resuscitation Status: Full Code Family History Family History: Hypertension Parental Family History Reviewed: Yes Children Family History Reviewed: Unknown Sibling(s) Family History Reviewed.: Unknown Medication/Allergy Home Medications: Levothyroxine Sodium [Synthroid] 200 mcg PO DAILY 07/09/18 Thyroid,Pork [Cisco Thyroid] 30 mg PO Q8A 07/15/18 Allergies/Adverse Reactions: erythromycin base [Erythromycin Base] Allergy (Severe, Verified 07/15/18 07:48) Anaphylaxis morphine [Morphine] Allergy (Severe, Verified 07/15/18 07:48) PONV Silk tape Allergy (Intermediate, Uncoded 07/15/18 07:48) Tears skin, rash Review of Systems Constitutional: PRESENT: fever(s). ABSENT: headache(s), night sweats, weakness Eyes: ABSENT: visual disturbances Ears: ABSENT: hearing changes Nose, Mouth, and Throat: ABSENT: mouth pain, sore throat Cardiovascular: ABSENT: edema, orthropnea Respiratory: ABSENT: dyspnea, hemoptysis Genitourinary: ABSENT: dysuria, hematuria Musculoskeletal: ABSENT: joint swelling, muscle weakness Integumentary: ABSENT: lesions, pruritus Neurological: ABSENT: syncope, tingling, tremor(s), vertigo Endocrine: ABSENT: polydipsia, polyphagia, polyuria Hematologic/Lymphatic: ABSENT: easy bruising, lymphadenopathy Physical Exam Vital Signs: Temp Pulse Resp BP Pulse Ox 98.5 F 70 16 103/51 L 98 09/11/18 04:13 09/11/18 04:13 09/11/18 04:13 09/11/18 04:13 09/11/18 04:13 Intake & Output 09/09/18 09/10/18 09/11/18 06:59 06:59 06:59 Intake Total 2000 Output Total 350 Balance 1650 Weight 83.461 kg General appearance: PRESENT: no acute distress, well-developed, well-nourished Head exam: PRESENT: atraumatic, normocephalic Eye exam: PRESENT: EOMI, PERRLA. ABSENT: nystagmus, periorbital swelling, scle ral icterus Mouth exam: PRESENT: moist, neck supple Teeth exam: ABSENT: edentulous Throat exam: ABSENT: tonsillar exudate, tonsillogmegaly Respiratory exam: PRESENT: symmetrical, unlabored. ABSENT: tachypnea, wheezes Cardiovascular exam: PRESENT: RRR, +S1, +S2 GI/Abdominal exam: PRESENT: tenderness. ABSENT: ascites, Ching's sign, rebound, rigid Neurological exam: PRESENT: oriented to time, oriented to situation, CN II-XII grossly intact Focused psych exam: ABSENT: restlessness Skin exam: PRESENT: normal color. ABSENT: mottled, pallor, urticaria, vesicles Results Laboratory Results: 09/11/18 05:58 09/10/18 09/10/18 09/10/18 20:36 21:14 21:14 WBC 11.0 H RBC 4.77 Hgb 14.3 Hct 42.4 MCV 89 MCH 30.1 MCHC 33.8 RDW 13.8 Plt Count 267 Seg Neutrophils % 65.1 Lymphocytes % 26.8 Monocytes % 6.7 Eosinophils % 0.6 Basophils % 0.8 Absolute Neutrophils 7.1 Absolute Lymphocytes 2.9 Absolute Monocytes 0.7 Absolute Eosinophils 0.1 Absolute Basophils 0.1 Sodium 136.3 L Potassium 3.8 Chloride 102 Carbon Dioxide 23 Anion Gap 11 BUN 11 Creatinine 0.86 Est GFR ( Amer) > 60 Est GFR (Non-Af Amer) > 60 Glucose 97 Calcium 9.2 Total Bilirubin 0.5 AST 38 H ALT 48 Alkaline Phosphatase 56 Total Protein 7.6 Albumin 4.3 Lipase 53.1 Serum HCG, Qual Urine Color YELLOW Urine Appearance CLEAR Urine pH 6.0 Ur Specific [place] > 1.060 Urine Protein NEGATIVE Urine Glucose (UA) NEGATIVE Urine Ketones TRACE H Urine Blood NEGATIVE Urine Nitrite NEGATIVE Ur Leukocyte Esterase TRACE H Urine WBC (Auto) 1 Urine RBC (Auto) 1 09/10/18 09/11/18 21:14 05:58 WBC 8.7 RBC 4.29 Hgb 12.9 Hct 38.5 MCV 90 MCH 30.2 MCHC 33.6 RDW 13.3 Plt Count 221 Seg Neutrophils % 51.9 Lymphocytes % 38.4 Monocytes % 7.8 Eosinophils % 1.3 Basophils % 0.6 Absolute Neutrophils 4.5 Absolute Lymphocytes 3.3 Absolute Monocytes 0.7 Absolute Eosinophils 0.1 Absolute Basophils 0.1 Sodium Potassium Chloride Carbon Dioxide Anion Gap BUN Creatinine Est GFR ( Amer) Est GFR (Non-Af Amer) Glucose Calcium Total Bilirubin AST ALT Alkaline Phosphatase Total Protein Albumin Lipase Serum HCG, Qual NEGATIVE Urine Color Urine Appearance Urine pH Ur Specific [place] Urine Protein Urine Glucose (UA) Urine Ketones Urine Blood Urine Nitrite Ur Leukocyte Esterase Urine WBC (Auto) Urine RBC (Auto) Assessment & Plan - Diagnosis (1) Acute diverticulitis Is this a current diagnosis for this admission?: Yes Plan: referred for admission has failed outpatient management IV fluids IV antibiotics clears as tolerated , advance slowly - Time Time Spent: 50 to 70 Minutes
[2018-09-11] MEDS ORDERED: NORMAL SALINE 1000 ML 1,000 ML IV PRN (14:29)
--- NOTE | 2018-09-11 16:00 | PDOC PROGRESS REPORT ---
Subjective Progress Note for:: 09/11/18 Subjective:: This is a 37-year-old female with a past medical history of diverticulitis who failed outpatient oral antibiotics for recent diverticulitis. She was admitted for IV antibiotic treatment. No acute event overnight. Upon encounter, patient says that her abdominal pain has slightly improved and she feels less tender. Denies nausea or vomiting. She has mild left lower quadrant direct tenderness with no rebound. Reason For Visit: DIVERTICULITIS Physical Exam Vital Signs: Temp Pulse Resp BP Pulse Ox 98.5 F 65 16 122/67 97 09/11/18 12:10 09/11/18 12:10 09/11/18 12:10 09/11/18 12:10 09/11/18 12:10 Intake & Output 09/10/18 09/11/18 09/12/18 06:59 06:59 06:59 Intake Total 2000 Output Total 350 1400 Balance 1650 -1400 Weight 184 lb General appearance: PRESENT: no acute distress, well-developed, well-nourished Head exam: PRESENT: atraumatic, normocephalic Eye exam: PRESENT: conjunctiva pink, EOMI, PERRLA. ABSENT: scleral icterus Ear exam: PRESENT: normal external ear exam Neck exam: ABSENT: carotid bruit, JVD, lymphadenopathy, thyromegaly Respiratory exam: PRESENT: clear to auscultation jairo. ABSENT: rales, rhonchi, wheezes Cardiovascular exam: PRESENT: RRR. ABSENT: diastolic murmur, rubs, systolic murmur Pulses: PRESENT: normal dorsalis pedis pul GI/Abdominal exam: PRESENT: normal bowel sounds, soft, tenderness - Mild direct left lower quadrant tenderness, negative rebound. ABSENT: distended, guarding, mass, organolmegaly, rebound Rectal exam: PRESENT: deferred Extremities exam: PRESENT: full ROM. ABSENT: calf tenderness, clubbing, pedal edema Neurological exam: PRESENT: alert, awake, oriented to person, oriented to place, oriented to time, oriented to situation, CN II-XII grossly intact. ABSENT: motor sensory deficit Results Laboratory Results: 09/11/18 05:58 09/11/18 05:58 09/10/18 09/10/18 09/10/18 20:36 21:14 21:14 WBC 11.0 H RBC 4.77 Hgb 14.3 Hct 42.4 MCV 89 MCH 30.1 MCHC 33.8 RDW 13.8 Plt Count 267 Seg Neutrophils % 65.1 Lymphocytes % 26.8 Monocytes % 6.7 Eosinophils % 0.6 Basophils % 0.8 Absolute Neutrophils 7.1 Absolute Lymphocytes 2.9 Absolute Monocytes 0.7 Absolute Eosinophils 0.1 Absolute Basophils 0.1 Sodium 136.3 L Potassium 3.8 Chloride 102 Carbon Dioxide 23 Anion Gap 11 BUN 11 Creatinine 0.86 Est GFR ( Amer) > 60 Est GFR (Non-Af Amer) > 60 Glucose 97 Calcium 9.2 Total Bilirubin 0.5 AST 38 H ALT 48 Alkaline Phosphatase 56 Total Protein 7.6 Albumin 4.3 Lipase 53.1 Serum HCG, Qual Urine Color YELLOW Urine Appearance CLEAR Urine pH 6.0 Ur Specific [place] > 1.060 Urine Protein NEGATIVE Urine Glucose (UA) NEGATIVE Urine Ketones TRACE H Urine Blood NEGATIVE Urine Nitrite NEGATIVE Ur Leukocyte Esterase TRACE H Urine WBC (Auto) 1 Urine RBC (Auto) 1 09/10/18 09/11/18 09/11/18 21:14 05:58 05:58 WBC 8.7 RBC 4.29 Hgb 12.9 Hct 38.5 MCV 90 MCH 30.2 MCHC 33.6 RDW 13.3 Plt Count 221 Seg Neutrophils % 51.9 Lymphocytes % 38.4 Monocytes % 7.8 Eosinophils % 1.3 Basophils % 0.6 Absolute Neutrophils 4.5 Absolute Lymphocytes 3.3 Absolute Monocytes 0.7 Absolute Eosinophils 0.1 Absolute Basophils 0.1 Sodium 137.5 Potassium 3.7 Chloride 109 H Carbon Dioxide 21 L Anion Gap 8 BUN 10 Creatinine 0.89 Est GFR ( Amer) > 60 Est GFR (Non-Af Amer) > 60 Glucose 94 Calcium 7.9 L Total Bilirubin AST ALT Alkaline Phosphatase Total Protein Albumin Lipase Serum HCG, Qual NEGATIVE Urine Color Urine Appearance Urine pH Ur Specific [place] Urine Protein Urine Glucose (UA) Urine Ketones Urine Blood Urine Nitrite Ur Leukocyte Esterase Urine WBC (Auto) Urine RBC (Auto) Assessment and Plan - Diagnosis (1) Acute diverticulitis Is this a current diagnosis for this admission?: Yes Plan: Failed outpatient antibiotic therapy. Currently on IV Zosyn. Abdominal pain slightly improved. Continue current management. Will try to start patient on clear liquids today if she continues to feel better. (2) Dehydration Is this a current diagnosis for this admission?: Yes Plan: Start IV fluids with normal saline at 100 cc/hr. - Time Time Spent with patient: 15-24 minutes
[2018-09-12] MEDS: HEPARIN SOD (PORCINE) 5,000 UNIT/ML 1 ML SYRINGE SUBCUT SCH ×2 (01:48→08:34)
[2018-09-12] MEDS: PIPERACILLIN SODIUM/TAZOBACTAM 4.5 GM in NORMAL SALINE 100 ML IV SCH ×2 (03:33→08:43)
[2018-09-12] MEDS ORDERED: LEVOTHYROXINE SODIUM 0.1 MG TABLET PO SCH (06:00)
[2018-09-12] MEDS ORDERED: THYROID (PORK) 60 MG TABLET PO SCH (06:00)
[2018-09-12] MEDS ORDERED: (PENDING PHARMACY ID) (Levothyroxine Sodium [Levothyroxine Sodium] 200 MCG) PO SCH (06:00)
[2018-09-12] MEDS ORDERED: THYROID PORK 30 MG PO SCH (06:00)
[2018-09-12] MEDS ORDERED: CHOLECALCIFEROL (D3) 1,000 UNIT TABLET PO SCH (10:00)
[2018-09-12 12:09] VITALS: BP 113/70
--- NOTE | 2018-09-13 18:24 | PDOC DISCHARGE SUMMARY ---
General - Admit/Disc Date/PCP Admission Date/Primary Care Provider: 09/10/18 22:35 Discharge Date: 09/12/18 - Discharge Diagnosis (1) Acute diverticulitis Is this a current diagnosis for this admission?: Yes (2) Dehydration Is this a current diagnosis for this admission?: Yes - Additional Information Resuscitation Status: Full Code Discharge Diet: Other (Comments) Discharge Activity: Activity As Tolerated Prescriptions: Ciprofloxacin HCl [Cipro 500 mg Tablet] 500 mg PO BID 6 Days #12 tablet Metronidazole [Flagyl 500 mg Tablet] 500 mg PO TID 6 Days #18 tablet Home Medications: Cholecalciferol (Vitamin D3) [Vitamin D3 5000 unit Capsule] 5,000 unit PO DAILY 09/11/18 Levothyroxine Sodium 200 mcg PO Q6AM 09/11/18 Thyroid,Pork [[place] Thyroid] 30 mg PO Q6AM 09/11/18 Ciprofloxacin HCl [Cipro 500 mg Tablet] 500 mg PO BID 6 Days #12 tablet 09/12/18 Metronidazole [Flagyl 500 mg Tablet] 500 mg PO TID 6 Days #18 tablet 09/12/18 History of Present Illness History of Present Illness: Admitting hospitalist's H&P: ANDREY BERGMAN is a 37 year old female with a past medical history of shingles and diverticulitis who presents with 5 days of abdominal pain. She has seen primary care and prescribed ciprofloxacin and Flagyl twice daily without significant improvement prompting her to seek evaluation by GI subspecialty who ordered abdominal CT revealing acute colonic diverticulitis. She is referred to the emergency room for outpatient failure. In the emergency room she started on symptomatic management, Zosyn and referred to the hospitalist for admission. Hospital Course Hospital Course: This is a 37-year-old female with a past medical history of diverticulitis who failed outpatient oral antibiotics for recent diverticulitis. She was admitted for IV antibiotic therapy. She was started on Zosyn. Her abdominal pain significantly improved overnight. Her diet was gradually advanced and she tolerated this well with no issue nor recurrence of abdominal pain. She will be dischaged on oral Flagyl and Cipro and will ff-up with her GI, Dr. Burgos. Physical Exam Vital Signs: Temp Pulse Resp BP Pulse Ox 97.6 F 70 15 113/70 97 09/12/18 12:00 09/12/18 12:00 09/12/18 12:00 09/12/18 12:00 09/12/18 12:00 Intake & Output 09/12/18 09/13/18 09/14/18 06:59 06:59 06:59 Intake Total 1820 1000 Output Total 3900 2150 Balance -2080 -1150 General appearance: PRESENT: no acute distress, well-developed, well-nourished Head exam: PRESENT: atraumatic, normocephalic Eye exam: PRESENT: conjunctiva pink, EOMI, PERRLA. ABSENT: scleral icterus Ear exam: PRESENT: normal external ear exam Mouth exam: PRESENT: moist, tongue midline Neck exam: ABSENT: carotid bruit, JVD, lymphadenopathy, thyromegaly Respiratory exam: PRESENT: clear to auscultation jairo. ABSENT: rales, rhonchi, wheezes Cardiovascular exam: PRESENT: RRR. ABSENT: diastolic murmur, rubs, systolic murmur Pulses: PRESENT: normal dorsalis pedis pul GI/Abdominal exam: PRESENT: normal bowel sounds, soft. ABSENT: distended, guarding, mass, organolmegaly, rebound, tenderness Rectal exam: PRESENT: deferred Extremities exam: PRESENT: full ROM. ABSENT: calf tenderness, clubbing, pedal edema Neurological exam: PRESENT: alert, awake, oriented to person, oriented to place, oriented to time, oriented to situation, CN II-XII grossly intact. ABSENT: motor sensory deficit Results Laboratory Results: 09/11/18 05:58 09/11/18 05:58 Qualifiers - * PATIENT BEING DISCHARGED WITH ANY OF THE FOLLOWING DIAGNOSIS: No Acute Heart Failure - Is this a Heart Failure Patient?: No LVEF < 40%?: No- if no continue to question #3 3. Anticoagulant therapy for permanect/persistent/paraoxysmal Afib or Aflutter: N/A
== END 2018-09-12 13:05 | disposition home or self-care (01) | DRG 392 ==
LOC: ER 20:26 → EH 22:35 → 2N 09-11 00:21
PROVIDERS: ADMIT Internal Medicine; ATTEND Internal Medicine
DX: K57.92 Diverticulitis of intestine, part unspecified, without perforation or abscess without bleeding (principal); E86.0 Dehydration; E78.00 Pure hypercholesterolemia, unspecified
CPT/HCPCS: 36415; 80048; 80053; 81001; 83690; 84703; 85025; 96374; 96375; 99285; J1170; J1644; J1885; J2405; J2543; J3490; J7030; J7050

== ENCOUNTER 2020-01-09 08:41 | Day surgery (SDC) | payer BC ==
--- NOTE | 2020-01-09 10:24 | Operative Report ---
Operative Report DATE OF SURGERY: 01/09/20 Operative Report: The risks benefits and alternatives of the procedure explained to the patient in detail and informed consent is obtained.A GIF Olympus video scope was inserted into the patient's mouth and hypopharynx, the esophagus is identified intubated and insufflated, the scope was then advanced through the esophagus stomach and duodenum, retroflexion maneuver is done ,the esophagus stomach and first and second portions of the duodenum examined PREOPERATIVE DIAGNOSIS: Dyspepsia, epigastric pain POSTOPERATIVE DIAGNOSIS: Duodenitis status post biopsy. Gastritis status post biopsy OPERATION: EGD with biopsy SURGEON: MYRIAM VOGT ANESTHESIA: LMAC TISSUE REMOVED OR ALTERED: As noted above. COMPLICATIONS: None. ESTIMATED BLOOD LOSS: None. INTRAOPERATIVE FINDINGS: As noted above. PROCEDURE: Patient tolerated the procedure well. No immediate postprocedure complications are noted. Patient is discharged in good condition. Discharge date 01/09/2020. Discharge diet: Regular. Discharge activity: Regular. 2 to 3-week follow-up to discuss findings. Patient is instructed to call the office or proceed to the emergency room should there be any further problems or questions. Wait on the pathology.
[2020-01-09 11:03] VITALS: BP 113/67
== END 2020-01-09 10:51 | disposition home or self-care (01) ==
LOC: END 08:41
PROVIDERS: ATTEND Internal Medicine Gastroenterology
DX: K29.50 Unspecified chronic gastritis without bleeding (principal); K29.80 Duodenitis without bleeding; R19.4 Change in bowel habit; E07.9 Disorder of thyroid, unspecified; Z90.49 Acquired absence of other specified parts of digestive tract; Z03.818 Encounter for observation for suspected exposure to other biological agents ruled out; Z85.850 Personal history of malignant neoplasm of thyroid; Z83.79 Family history of other diseases of the digestive system; Z79.899 Other long term (current) drug therapy
CPT/HCPCS: 43239; 88305 ×2; U0003; J2704; C9803; 731; 87635